=== PATIENT | male | born 1945 | race Native Hawaiian/Other Pacific Islander ===

== ENCOUNTER 2019-02-18 09:10 | Emergency (ER) | payer OTHER ==
[~2019-02-18] VITALS: Ht 177.8 cm; Wt 81.6 kg
[2019-02-18 09:15] VITALS: TEMP 97.3
[2019-02-18] MEDS ORDERED: CVS OMEPRAZOLE20 MG PO (09:37)
[2019-02-18] MEDS ORDERED: COZAAR100 MG PO (09:37)
[2019-02-18] MEDS ORDERED: AMLODIPINE BESYLATE PO (09:38)
[2019-02-18] MEDS ORDERED: ASPIR-LOW81 MG PO (09:38)
[2019-02-18] MEDS ORDERED: PRAVACHOL80 MG PO (09:38)
[2019-02-18] MEDS ORDERED: TENORETIC50 MG PO (09:38)
[2019-02-18 09:42] LABS: PLATELET COUNT 330 K/uL (142-355)
[2019-02-18 09:50] LABS: SODIUM 135 mmol/L (136-145)
[2019-02-18 16:44] VITALS: BP 125/84
== END 2019-02-18 16:46 | disposition short-term general hospital (02) ==
LOC: ED 09:10
PROVIDERS: Family Medicine
DX: I48.91 Unspecified atrial fibrillation (principal); J18.9 Pneumonia, unspecified organism; J44.9 Chronic obstructive pulmonary disease, unspecified; R07.89 Other chest pain; R06.02 Shortness of breath
CPT/HCPCS: 36600; 80053; 81000; 82550; 82805; 83880; 84484; 85027; 85379; 87040; 93005; 96365; 96375; 99284; J0696; J2930; J3490

== ENCOUNTER 2021-04-13 09:53 | Inpatient (IN) | payer OTHER ==
[~2021-04-13] VITALS: Ht 177.8 cm; Wt 73.2 kg
[~2021-04-13 09:53] MED LIST: AMLODIPINE BESYLATE PO; ASPIR-LOW81 MG PO; COZAAR100 MG PO; CVS OMEPRAZOLE20 MG PO; PRAVACHOL80 MG PO; TENORETIC50 MG PO
[2021-04-13 10:07] VITALS: BP 162/90; TEMP 97.2
[2021-04-13] MEDS ORDERED: NEURONTIN 100M100 MG PO (10:18)
[2021-04-13] MEDS ORDERED: ELIQUIS STARTER5 MG PO (10:18)
[2021-04-13] MEDS ORDERED: NITR0.4S2 SL (10:19)
[2021-04-13] MEDS ORDERED: LOPRESSOR100 MG PO (10:19)
[2021-04-13] MEDS ORDERED: ALBUTEROL0.083 % INH (10:20)
[2021-04-13 10:25] LABS: PLATELET COUNT 292 K/uL (142-355)
[2021-04-13 10:36] LABS: PARTIAL THROMBOPLASTIN TIME 30.3 SECONDS (24.5-33.6)
[2021-04-13 10:38] LABS: POTASSIUM 4.4 mmol/L (3.6-5.2)
[2021-04-13 11:23] VITALS: BP 176/60
[2021-04-13 16:00] VITALS: BP 163/68; TEMP 97.9
[2021-04-13 18:01] VITALS: BP 150/89; TEMP 97.9; Ht 177.8 cm; Wt 73.2 kg
[2021-04-13 20:00] VITALS: BP 144/66; TEMP 98
[2021-04-14] VITALS: BP 150/55; TEMP 98.1
[2021-04-14 04:13] VITALS: BP 144/54; TEMP 97.6
[2021-04-14 05:06] LABS: PLATELET COUNT 230 K/uL (142-355)
[2021-04-14 05:16] LABS: POTASSIUM 3.6 mmol/L (3.6-5.2)
[2021-04-14 08:00] VITALS: BP 186/72; TEMP 97.9
[2021-04-14 10:00] VITALS: BP 166/76; TEMP 97.6
[2021-04-14 16:00] VITALS: BP 163/63; TEMP 98.1
[2021-04-14 18:07] VITALS: BP 179/71; TEMP 99.2
[2021-04-14] MEDS ORDERED: DILTIAZEM HYDR120 M1 PO (20:10)
[2021-04-14] MEDS ORDERED: HYDR10TA47 PO (20:10)
[2021-04-15] VITALS: BP 117/69; TEMP 98
[2021-04-15 04:00] VITALS: BP 124/77; TEMP 98.4
[2021-04-15 06:47] LABS: PLATELET COUNT 217 K/uL (142-355)
[2021-04-15 08:00] VITALS: BP 163/68; TEMP 98.6
== END 2021-04-15 14:51 | disposition home or self-care (01) | DRG 190 ==
LOC: ED 09:53 → MED/SURG 11:00
PROVIDERS: Hospitalist; ADMIT Internal Medicine; ATTEND Internal Medicine
DX: J44.0 Chronic obstructive pulmonary disease with (acute) lower respiratory infection (principal); J18.8 Other pneumonia, unspecified organism; J44.1 Chronic obstructive pulmonary disease with (acute) exacerbation; I48.91 Unspecified atrial fibrillation; K21.9 Gastro-esophageal reflux disease without esophagitis; G62.89 Other specified polyneuropathies; I11.0 Hypertensive heart disease with heart failure; I50.9 Heart failure, unspecified; E78.49 Other hyperlipidemia
CPT/HCPCS: 36415; 36600; 80048; 80053; 82550; 82805; 83880; 84484; 85027; 85610; 85730; 87635; 93005; 94640; 94664; 94760; 96374; 99284; J0696; J1650; J1940; J1956; U0003

== ENCOUNTER 2021-04-15 20:00 | Emergency (ER) | payer OTHER ==
[~2021-04-15] VITALS: Ht 177.8 cm; Wt 73.0 kg
[~2021-04-15 20:00] MED LIST changes: +ALBUTEROL0.083 % INH; +DILTIAZEM HYDR120 M1 PO; +ELIQUIS STARTER5 MG PO; +HYDR10TA47 PO; +LOPRESSOR100 MG PO; +NEURONTIN 100M100 MG PO; +NITR0.4S2 SL
[2021-04-15 20:41] LABS: PLATELET COUNT 316 K/uL (142-355)
[2021-04-15 21:01] LABS: POTASSIUM 4.5 mmol/L (3.6-5.2)
[2021-04-16 07:31] LABS: POTASSIUM 4.4 mmol/L (3.6-5.2)
[2021-04-16 07:54] LABS: PLATELET COUNT 197 K/uL (142-355)
[2021-04-16 09:12] VITALS: BP 155/61; TEMP 98.4
== END 2021-04-16 09:45 | disposition still patient (30) ==
LOC: ED 20:15
PROVIDERS: Emergency Medicine Emergency Medical Services
DX: J18.9 Pneumonia, unspecified organism (principal); R09.02 Hypoxemia; I21.4 Non-ST elevation (NSTEMI) myocardial infarction; I50.9 Heart failure, unspecified; Z11.52 Encounter for screening for COVID-19
CPT/HCPCS: 36415; 80053; 83605; 83880; 84484; 85027; 87040; 87635; 93005; 94664; 96360; 96361; 96365; 96375; 99284; J0456; J1940; J2543; U0003